=== PATIENT | female | born 1945 | race Caucasian/White ===

== ENCOUNTER 2019-08-01 15:01 | Emergency (ER) | payer MEDICARE, SELFPAY ==
--- NOTE | ~2019-08-01 | XR_ITS ---
EXAMINATION: XR chest 2V EXAM DATE: 08/01/2019 15:56 INDICATION: Two-day shortness of breath. Mid chest pain. Hypertension. TECHNIQUE: Sitting AP frontal chest x-ray, and the lateral chest x-ray was obtained. Comparison is ma heidi to prior examination from 07/31/2018. FINDINGS: The cardiomediastinal silhouette is prominent but magnified on this AP technique. Left uppe r lobe granuloma. No confluent consolidation, pneumothorax or pleural effusion suspected. Right shoul fawad replacement. IMPRESSION: No airspace disease. Reviewed, dictated and finalized at location A. ATING MACHINE OPERATOR IMPRESSION: No airspace disease.
[2019-08-01 15:11] VITALS: BP 186/97; PULSE 72; RESP 18; TEMP 36.8; O2SAT 99
--- NOTE | 2019-08-01 15:14 | ECG_ITS ---
Measurements Intervals [place] Rate: 75 P: VT: 0 QRS: -40 QRSD: 136 T: -12 QT: 396 QTc: 444 Interpretive Statements SINUS RHYTHM WITH FIRST DEDGREE AV BLOCK ATRIAL PREMATURE COMPLEX LEFT AXIS DEVIATION RIGHT BUNDLE BRANCH BLOCK VOLTAGE CRITERIA FOR LVH BASELINE ARTIFACT- I, II, AVL ABNORMAL ECG Electronically Signed On 08-02-2019 10:44:16 RETAIL DEPARTMENT MANAGER by Kiel Dunne D.O.
--- NOTE | 2019-08-01 15:24 | ED_ITS ---
I attest that this documentation has been prepared under the direction and in the presence of Fransisco Kirkpatrick DO. Asani, Arberesha, Scribe 08/01/19;15:25 HPI - Chest Pain General Chief Complaint: Chest Pain Stated Complaint: chest pain Time Seen by Provider: 08/01/19 15:19 History of Present Illness HPI narrative: Pt SOB x3-4 days today tenderness to chest no cough fever NV idiopathic ventriculat tachycardia- smoked 50 years ago no blood thinners Related Data Allergies Allergy/AdvReac Type Severity Reaction Status Date / Time sulfamethoxazole Allergy Intermediate Other Verified 10/06/18 10:24 BELEN Inhibitors Allergy Unknown Verified 10/25/18 13:13 metformin Allergy Unknown Verified 10/25/18 13:13 mirabegron Allergy Unknown Verified 03/04/19 14:27 piperacillin Allergy Unknown Verified 10/25/18 13:14 sulfamethizole Allergy Unknown Verified 10/25/18 13:14 tazobactam Allergy Unknown Verified 08/30/17 11:04 trimethoprim Allergy Unknown Verified 10/25/18 13:15 PMFSH Family History Family History (Updated 10/25/18 @ 13:22 by DOCTOR UNKNOWN) Mother Hypertension, Onset Age: 92 Patient's mother is Family history of heart disease in male family member before age 55 Family history of cardiovascular disease Family history of dementia Grandparent Carcinoma of colon, Onset Age: 80 Family history of malignant neoplasm of cervix, Onset Age: 60 Family history of malignant neoplasm Father Family history of throat cancer Patient's father is , Onset Age: 62 Family history of malignant neoplasm Other Family history of alcoholism Family history of arthritis Social History Social History Smoking status: Never smoker Smoking end date: 06/25/69 Alcohol intake: never Gender identity (if verbalized by the patient): Female Course Vital Signs Vital signs: Vital Signs Temperature 36.8 C 08/01/19 15:11 Pulse Rate 72 08/01/19 15:11 Respiratory Rate 18 08/01/19 15:11 Blood Pressure 186/97 H 08/01/19 15:11 Pulse Oximetry 99 08/01/19 15:11 Temperature 36.8 C 08/01/19 15:11 Pulse Rate 72 08/01/19 15:11 Respiratory Rate 18 08/01/19 15:11 Blood Pressure 186/97 H 02/07/20 15:11 Pulse Oximetry 99 08/01/19 15:11 Discharge Plan Discharge Prescriptions: No Action Toviaz 4 mg tablet extended release 24 hr 4 mg PO DAILY Qty: 90 RF: 0 candesartan 32 mg tablet 32 mg PO DAILY Qty: 90 RF: 0 metformin 500 mg tablet 500 mg PO DAILY Qty: 90 RF: 1
--- NOTE | 2019-08-01 15:29 | ED.SOB ---
HPI - SOB/Dyspnea General Chief Complaint: Chest Pain <Fransisco Kirkpatrick DO - Last Filed: 08/01/19 18:44> Stated Complaint: chest pain <Fransisco Kirkpatrick DO - Last Filed: 08/01/19 18:44> Time Seen by Provider: 08/01/19 15:19 <Fransisco Kirkpatrick DO - Last Filed: 08/01/19 18:44> Source: patient <Fransisco Kirkpatrick DO - Last Filed: 08/01/19 18:44> Mode of arrival: ambulatory <Fransisco Kirkpatrick DO - Last Filed: 08/01/19 18:44> Limitations: no limitations <Fransisco Kirkpatrick DO - Last Filed: 08/01/19 18:44> History of Present Illness HPI Narrative: Pt is a 74 y/o female who presents to the ED with c/o SOB x4 days. Pt reports chest tenderness, but denies cough, fever, or N/V. She has a H/o idiopathic ventricular tachycardia but has not had Sx for many years. Pt quit smoking 50 years ago and she is not on any blood thinners. Her driller's offsider is Dr. Ezequiel Kat at [facility]. <Fransisco Kirkpatrick DO - Last Filed: 08/01/19 18:44> MD elicited complaint: shortness of breath <Fransisco Kirkpatrick DO - Last Filed: 08/01/19 18:44> Onset (ago): day(s) (4) <Fransisco Kirkpatrick DO - Last Filed: 08/01/19 18:44> Known history of: other (idiopathic ventricular tachycardia) <Fransisco Kirkpatrick DO - Last Filed: 08/01/19 18:44> Associated symptoms: chest pain <Fransisco Kirkpatrick DO - Last Filed: 08/01/19 18:44> Related Data Home Medications: Home Medications Medication Instructions Recorded Confirmed amoxicillin 500 mg PO Q12H 08/01/19 aspirin 81 mg PO DAILY 08/01/19 candesartan 08/01/19 doxycycline hyclate 100 mg PO BID 08/01/19 fesoterodine [Toviaz] mg PO 08/01/19 hydrochlorothiazide 25 mg PO DAILY 08/01/19 levothyroxine [Synthroid] 125 mcg PO DAILY 08/01/19 lorazepam 0.5 mg PO DAILY PRN 08/01/19 metformin 500 mg PO DAILY 08/01/19 sotalol 120 mg PO BID 08/01/19 <Fransisco Kirkpatrick DO - Last Filed: 08/01/19 18:44> Allergies/Adverse Reactions: Allergies Allergy/AdvReac Type Severity Reaction Status Date / Time sulfamethoxazole Allergy Intermediate Other Verified 10/06/18 10:24 mirabegron Allergy Unknown Chest Pain Verified 08/01/19 15:31 piperacillin Allergy Unknown Other Verified 08/01/19 15:31 sulfamethizole Allergy Unknown Other Verified 08/01/19 15:31 tazobactam Allergy Unknown Unknown Verified 08/01/19 15:31 trimethoprim Allergy Unknown Unknown Verified 08/01/19 15:31 BELEN Inhibitors AdvReac Unknown Cough Verified 08/01/19 15:31 <Fransisco Kirkpatrick DO - Last Filed: 08/01/19 18:44> Review of Systems Review of Systems: All systems reviewed & are unremarkable except as noted in HPI and below <Fransisco Kirkpatrick DO - Last Filed: 08/01/19 18:44> Constitutional: Constitutional: Denies fever(s) <Fransisco Kirkpatrick DO - Last Filed: 08/01/19 18:44> Cardiovascular: Cardiovascular: Reports chest pain <Fransisco Kirkpatrick DO - Last Filed: 08/01/19 18:44> Respiratory: Respiratory: Denies cough and Reports dyspnea <Fransisco Kirkpatrick DO - Last Filed: 08/01/19 18:44> Gastrointestinal: Gastrointestinal: Denies nausea and Denies vomiting <Fransisco Kirkpatrick DO - Last Filed: 08/01/19 18:44> [facility] Past Medical History Medical History: Medical History (Updated 08/01/19 @ 18:30 by Fransisco Kirkpatrick DO) Anemia Anxiety Arthritis Diabetes mellitus HLD (hyperlipidemia) HTN (hypertension) Hypothyroid Idiopathic ventricular tachycardia Leg fracture, left <Fransisco Kirkpatrick DO - Last Filed: 08/01/19 18:44> Surgical History Surgical History: Surgical History (Updated 08/01/19 @ 15:35 by Eri De Paz) H/O bilateral cataract extraction H/O dilation and curettage H/O total shoulder replacement rt H/O tubal ligation History of left knee replacement <Fransisco Kirkpatrick DO - Last Filed: 08/01/19 18:44> Family History Family History: Family History (Updated 10/25/18 @ 13:22 by DOCTOR UNKNOWN) Mother Hypertens
[2019-08-01 15:41] LABS: Basophils Absolute Auto 0.1 K/mm3 (0.0-0.1); Basophils Percent Auto 0.9 % (0.2-1.2); Eosinophils Absolute Auto 0.1 K/mm3 (0-0.3); Eosinophils Percent Auto 1.6 % (0-4.4); Hematocrit 39.1 % (37.0-47.0); Hemoglobin 12.6 g/dL (12.0-15.0); Immature Granulocyte Absolute 0.03 K/mm3 (0.00-0.031); Immature Granulocyte Percent A 0.4 % (0-0.5); Lymphocytes Absolute Auto 1.91 K/mm3 (0.9-3.2); Lymphocytes Percent Auto 23.8 % (18.3-44.2); Mean Corpuscular HGB Conc 32.2 g/dl (32-36); Mean Corpuscular Hemoglobin 30.6 pg (26-34); Mean Corpuscular Volume 94.9 fl (80-100); Mean Platelet Volume 10.4 fl (7.4-10.4); Monocytes Absolute Auto 0.8 K/mm3 (0.1-0.6); Monocytes Percent Auto 10.1 % (2.6-8.5); Neutrophils Absolute Auto 5.1 K/mm3 (1.3-6.7); Neutrophils Percent Auto 63.2 % (45.5-73.1); Platelet Count Result 270 k/mm3 (150-375); Red Blood Count 4.12 M/mm3 (4.2-5.4); Red Cell Distribution Width 12.7 % (11.5-14.5)
[2019-08-01 15:47] LABS: Partial Thromboplastin Time 29.4 SECONDS (22.3-36.8); Prothrombin Time 12.5 Seconds (11.1-14.7)
[2019-08-01 15:52] LABS: Blood Urea Nitrogen 25 mg/dL (7-17); Calcium 9.1 mg/dL (8.4-10.2); Carbon Dioxide 25 mmol/L (22-30); Chloride 98 mmol/L (98-107); Estimated CRCL calculation 73 ml/min; Estimated Glomerular Filt Rate > 60; Glucose 124 mg/dL (65-105); Sodium 135 mmol/L (137-145)
[2019-08-01 16:01] LABS: NT Pro B Type Natriuretic Pept 243 PG/ML (5-100)
[2019-08-01] MEDS: ASPIRIN 81 MG CHEWABLE TABLET 324 MG PO (16:01)
[2019-08-01 16:03] LABS: Troponin I < 0.012 ng/mL (0.000-0.034)
--- NOTE | 2019-08-01 17:22 | PM.CNCAR ---
Assessment and Plan Assessment and plan (1) HLD (hyperlipidemia): Code(s): E78.5 - Hyperlipidemia, unspecified Status: Acute (2) HTN (hypertension): Code(s): I10 - Essential (primary) hypertension Status: Acute Assessment and Plan: Stable. (3) Idiopathic ventricular tachycardia: Code(s): I47.2 - Ventricular tachycardia Status: Acute Assessment and Plan: Stable on Sotalol. (4) SOB (shortness of breath): Code(s): R06.02 - Shortness of breath Status: Acute Assessment and Plan: Obtain CT chest to r/o PE. Check second troponin level. History of Present Illness History of Present Illness Consult date/time: 08/01/19 17:22 Consult regarding sob. 74 yr old woman with a history of idiopathic VT on Sotalol and being followed by her EP physician, Dr. Kat at [facility] in [facility]), hypertension, DM, obesity who presents to ED for sob for the last several days that got worse this morning. She states that moving or walking makes sob worse, but not lying down. No edema, orthopnea, palpitations. No chest pain but she has chest wall tenderness. First set of troponin is normal. EKG is essentially normal showing Sinus rhythm, PAC, RBBB. Reason For Visit: chest pain Review of Systems Constitutional: Constitutional: Reports as per HPI Cardiovascular: Cardiovascular: Reports as per HPI, Denies chest pain, Denies leg edema, Denies lightheadedness and Denies palpitations Respiratory: Respiratory: Reports as per HPI, Reports dyspnea and Reports dyspnea on exertion Gastrointestinal: Gastrointestinal: Reports as per HPI and Denies abdominal pain Musculoskeletal: Musculoskeletal: Reports as per HPI Neurologic: Reports as per HPI and Denies Abnormal speech present [facility] Past Medical History Medical History (Updated 08/01/19 @ 17:28 by Kiel Dunne DO) Anemia Anxiety Arthritis Diabetes mellitus HLD (hyperlipidemia) HTN (hypertension) Hypothyroid Idiopathic ventricular tachycardia Leg fracture, left Surgical History Surgical History (Updated 08/01/19 @ 15:35 by Eri De Paz) H/O bilateral cataract extraction H/O dilation and curettage H/O total shoulder replacement rt H/O tubal ligation History of left knee replacement Family History Family History (Updated 10/25/18 @ 13:22 by DOCTOR UNKNOWN) Mother Hypertension, Onset Age: 92 Patient's mother is Family history of heart disease in male family member before age 55 Family history of cardiovascular disease Family history of dementia Grandparent Carcinoma of colon, Onset Age: 80 Family history of malignant neoplasm of cervix, Onset Age: 60 Family history of malignant neoplasm Father Family history of throat cancer Patient's father is , Onset Age: 62 Family history of malignant neoplasm Other Family history of alcoholism Family history of arthritis Social History Social History (Updated 08/01/19 @ 15:36 by Eri De Paz) Smoking status: Former smoker Smoking end date: 06/25/69 Alcohol intake: never Gender identity (if verbalized by the patient): Female Meds Home Medications and Allergies Home Medications Medication Instructions Recorded Confirmed Type amoxicillin 500 mg PO Q12H 08/01/19 History aspirin 81 mg PO DAILY 08/01/19 History candesartan 08/01/19 History doxycycline hyclate 100 mg PO BID 08/01/19 History fesoterodine [Toviaz] mg PO 08/01/19 History hydrochlorothiazide 25 mg PO DAILY 08/01/19 History levothyroxine [Synthroid] 125 mcg PO DAILY 08/01/19 History lorazepam 0.5 mg PO DAILY PRN 08/01/19 History metformin 500 mg PO DAILY 08/01/19 History sotalol 120 mg PO BID 08/01/19 History Allergies Allergy/AdvReac Type Severity Reaction Status Date / Time sulfamethoxazole Allergy Intermediate Other Verified 10/06/18 10:24 mirabegron Allergy Unknown Chest Pain Verified 08/01/19 15:
[2019-08-01 17:30] VITALS: BP 151/82; PULSE 64; RESP 20; O2SAT 98
[2019-08-01 18:26] LABS: Troponin I < 0.012 ng/mL (0.000-0.034)
[2019-08-01 19:24] VITALS: BP 160/77; PULSE 62; RESP 16; O2SAT 100
[2019-08-01 19:36] VITALS: PULSE 70
--- NOTE | 2019-08-01 21:44 | PC.NURSE ---
Patient's second IV blew while in radiology. EDP Maksim notified.
[2019-08-01 21:54] VITALS: BP 149/77; PULSE 69; RESP 12; O2SAT 98
[2019-08-01 22:05] LABS: D Dimer 1.85 ug/mL (<0.48)
[2019-08-01 22:17] LABS: Troponin I < 0.012 ng/mL (0.000-0.034)
[2019-08-01 23:40] VITALS: BP 137/81; PULSE 73; RESP 21; TEMP 37.1; O2SAT 100
--- NOTE | 2019-08-01 23:55 | PC.NURSE ---
Patient discharged at this time. Unable to click the box to chart discharge date and time. Patient discharged on 08/01/2019 at 2355 ED charge nurse Sophie notified. Patient was wheelchaired out of ED in no distress or difficulty and with all belongings.
== END 2019-08-01 23:40 | disposition home or self-care (01) ==
PROVIDERS: Emergency Medicine; Emergency Provider Emergency Medicine; PCP Internal Medicine
DX: R07.89 Other chest pain (principal); E78.5 Hyperlipidemia, unspecified; I10 Essential (primary) hypertension; R06.02 Shortness of breath; F41.9 Anxiety disorder, unspecified; Z86.2 Personal history of diseases of the blood and blood-forming organs and certain disorders involving the immune mechanism; E11.9 Type 2 diabetes mellitus without complications; E03.9 Hypothyroidism, unspecified; Z98.42 Cataract extraction status, left eye; Z98.41 Cataract extraction status, right eye; Z96.611 Presence of right artificial shoulder joint; Z96.652 Presence of left artificial knee joint; Z87.891 Personal history of nicotine dependence; Z79.4 Long term (current) use of insulin; Z79.82 Long term (current) use of aspirin; I44.0 Atrioventricular block, first degree; I49.1 Atrial premature depolarization; R94.31 Abnormal electrocardiogram [ECG] [EKG]; I45.10 Unspecified right bundle-branch block
CPT/HCPCS: 36415; 71046; 80048; 83880; 84484; 85025; 85380; 85610; 85730; 93005; 99284; A9270

== ENCOUNTER → 2019-08-12 12:24 | Outpatient (CLI) | payer MEDICARE, SELFPAY ==
--- NOTE | ~2019-08-12 | CT_ITS ---
EXAMINATION: CTA chest PE protocol DATE: 08/12/2019 13:05 INDICATION: Shortness of breath, mid chest pain TECHNIQUE: Computed tomography angiography (CTA) of the chest was performed with 100 mL Omnipaque-350 intravenous contrast timed to evaluate the pulmonary arteries. Coronal maximum intensity projection 3D-reconstructions were created by the technologist. Automated exposure control and iterative reconst ruction technique were employed. Exam dose: 786.13 mGy-cm total exam DLP. COMPARISON: 08/01/2021 view chest 04/25/2018 CT pulmonary scan FINDINGS: There is diagnostic contrast enhancement of the pulmonary arteries and no evidence of pulmo nary embolism. Stable ascending aortic diameter approximately 4.1 cm. No evidence of thoracic aortic dissection. No hilar or mediastinal mass lesion or lymphadenopathy. No pulmonary infiltrate or consolidation. 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 Status post right glenohumeral shoulder arthroplasty. There is a large partially calcified gallstone and suggestion of multiple smaller dependent gallstone s; gallbladder ultrasound would be more definitive for evaluation of the gallbladder. IMPRESSION: No evidence of pulmonary embolism Cholelithiasis Reviewed, dictated and finalized at [facility]. Reviewed, dictated and finalized at location B. ER TAPER
== END ==
PROVIDERS: PCP Internal Medicine; Visit Provider Internal Medicine
DX: I26.99 Other pulmonary embolism without acute cor pulmonale (principal); K80.20 Calculus of gallbladder without cholecystitis without obstruction
CPT/HCPCS: 71275; Q9967

== ENCOUNTER 2019-10-31 11:04 | Outpatient (CLI) | payer MEDICARE, SELFPAY | END 2019-10-31 11:05 | disposition home or self-care (01) | PROVIDERS: PCP Internal Medicine; Visit Provider Internal Medicine | DX: R19.7 Diarrhea, unspecified (principal) | CPT/HCPCS: 87045; 87046; 87324; 87427 ==

== ENCOUNTER 2020-07-16 11:51 | Outpatient (NON) | payer MEDICARE, SELFPAY ==
[2020-07-16 22:24] LABS: SARS-CoV-2 RNA PCR Negative
== END 2020-07-16 11:52 ==
LOC: ANHCOVIDDT 11:52
PROVIDERS: Family Provider Internal Medicine; PCP Internal Medicine; Visit Provider Internal Medicine
DX: R68.89 Other general symptoms and signs (principal); Z20.822 Contact with and (suspected) exposure to COVID-19
CPT/HCPCS: C9803; U0003; U0005

== ENCOUNTER → 2020-10-02 01:11 | Outpatient (CLI) | payer MEDICARE, SELFPAY ==
[2020-10-02 18:53] LABS: SARS-CoV-2 RNA PCR Negative
== END ==
PROVIDERS: PCP Internal Medicine; Visit Provider Internal Medicine Gastroenterology
DX: Z01.812 Encounter for preprocedural laboratory examination (principal); Z20.822 Contact with and (suspected) exposure to COVID-19
CPT/HCPCS: C9803; U0003; U0005

== ENCOUNTER 2020-10-06 02:02 | Day surgery (SDC) | payer MEDICARE, SELFPAY ==
[2020-09-24 14:12] VITALS: BMI 43.1
[2020-10-06 08:35] VITALS: BP 150/81; PULSE 66; RESP 18; TEMP 36.4; O2SAT 97; BMI 45.8
[2020-10-06 08:43] LABS: Glucose Point of Care 111 (65-105)
[2020-10-06] MEDS: LACTATED RINGERS 1,000 ML 150 ML IV CONT (08:49)
--- NOTE | 2020-10-06 09:23 | WPDANESEPPF ---
Anes - Initial Pre Proc Eval Procedure: Operation Date: 10/06/20 09:30 Proposed Procedures p Screening Colonoscopy - Sukhdev Lozano MD Date/Time: 10/06/20 09:23 Surgeon: Sukhdev Lozano MD Pre Op Diagnosis: Neoplasm Screening Patient Data Age: 75 Gender: F Height: 5 ft 7 in Weight: 132.8 kg Last Vital Signs Temp 97.5 F L 10/06/20 08:35 Pulse 66 10/06/20 08:35 Resp 18 10/06/20 08:35 BP 150/81 H 10/06/20 08:35 Pulse Ox 97 10/06/20 08:35 Allergies Allergy/AdvReac Type Severity Reaction Status Date / Time sulfamethoxazole Allergy Mild Hives Verified 10/06/20 08:34 [From Bactrim] mirabegron Allergy Unknown Chest Pain Verified 10/06/20 08:34 tazobactam Allergy Unknown Unknown Verified 10/06/20 08:34 trimethoprim Allergy Unknown Unknown Verified 10/06/20 08:34 Home Medications Medication Instructions Recorded Confirmed Type aspirin 81 mg PO DAILY 08/01/19 10/06/20 History sotalol 120 mg PO BID 08/01/19 10/06/20 History melatonin 10 mg capsule 10 mg PO HS PRN 06/08/20 10/06/20 History metformin 500 mg tablet 500 mg PO DAILY #90 tablet 06/22/20 10/06/20 Rx candesartan 32 mg tablet See Rx Instructions .ROUTE 08/03/20 10/06/20 Rx .COMPLEX #90 tablet fesoterodine 4 mg tablet,extended See Rx Instructions .ROUTE 08/16/20 10/06/20 Rx release 24 hr .COMPLEX #90 tablet levothyroxine 88 mcg tablet 88 mcg PO DAILY #90 tablet 08/31/20 10/06/20 Rx duloxetine 30 mg capsule,delayed 30 mg PO DAILY #90 cap 09/01/20 10/06/20 Rx release diphenoxylate-atropine 2.5 1 tablet PO TID PRN #20 tablet 10/04/20 10/06/20 Rx mg-0.025 mg tablet lorazepam 0.5 mg tablet 0.5 mg PO DAILY PRN #30 tablet 10/04/20 10/06/20 Rx hydrochlorothiazide 25 mg tablet See Rx Instructions .ROUTE 10/05/20 10/06/20 Rx .COMPLEX #90 tablet Laboratory Tests 10/06/20 08:41 POC Capillary Glucose 111 mg/dl H mg/dl (65-105) Patient hx anesthesia problems: none Family hx anesthesia problems: none [facility] Past Medical History Medical History (Updated 09/01/20 @ 13:39 by Fernando Ann MD) Anemia Anxiety Arthritis Diabetes mellitus HLD (hyperlipidemia) HTN (hypertension) Hypothyroid Idiopathic ventricular tachycardia Leg fracture, left Surgical History Surgical History H/O bilateral cataract extraction H/O dilation and curettage H/O total shoulder replacement rt H/O tubal ligation History of left knee replacement Family History Family History Mother Hypertension, Onset Age: 92 Patient's mother is Family history of heart disease in male family member before age 55 Family history of cardiovascular disease Family history of dementia Grandparent Carcinoma of colon, Onset Age: 80 Family history of malignant neoplasm of cervix, Onset Age: 60 Family history of malignant neoplasm Father Family history of throat cancer Patient's father is , Onset Age: 62 Family history of malignant neoplasm Other Family history of alcoholism Family history of arthritis Social History Social History Smoking end date: 06/25/69 Alcohol intake: never Drinks per week: 1 Alcohol use details: wine Living arrangements: with family Gender identity (if verbalized by the patient): Female Spiritual care concerns: No Anes - Eval Final PreProcedure Day of Procedure 10/06/20 09:23 Patient weight: morbidly obese Heart: regular rate and rhythm Lungs: clear to auscultation Airway: Mallampati scale class III Neurological: alert and oriented Last oral intake: >/= 8 hours ASA classification: IV Emergent: no Anesthetic plan: proceed Anesthesia type and monitoring: general GIVS and standard monitoring Informed Consent: The patient's anesthetic plan and its attendant risks and benefits were discussed with radha
--- NOTE | 2020-10-06 09:24 | PM.HPGS ---
History of Present Illness History of Present Illness Consent: Risks, benefits, and alternatives have been discussed and questions answered. Patient agrees to proceed with procedure. Chief complaint: Neoplasm Screening Narrative: Kayleen Blair is a 75 year old female referred for colon cancer screening. This is her 1st colonoscopy. She has also had very loose stools. It was thought that metformin was the cause but stopping it did not seem to make much of a difference. Review of Systems Review of Systems: All systems reviewed & are unremarkable except as noted in HPI and below PMFSH Past Medical History Medical History Anemia Anxiety Arthritis Diabetes mellitus HLD (hyperlipidemia) HTN (hypertension) Hypothyroid Idiopathic ventricular tachycardia Leg fracture, left Surgical History Surgical History H/O bilateral cataract extraction H/O dilation and curettage H/O total shoulder replacement rt H/O tubal ligation History of left knee replacement Family History Family History Mother Hypertension, Onset Age: 92 Patient's mother is Family history of heart disease in male family member before age 55 Family history of cardiovascular disease Family history of dementia Grandparent Carcinoma of colon, Onset Age: 80 Family history of malignant neoplasm of cervix, Onset Age: 60 Family history of malignant neoplasm Father Family history of throat cancer Patient's father is , Onset Age: 62 Family history of malignant neoplasm Other Family history of alcoholism Family history of arthritis Social History Social History Smoking end date: 06/25/69 Alcohol intake: never Drinks per week: 1 Alcohol use details: wine Living arrangements: with family Gender identity (if verbalized by the patient): Female Spiritual care concerns: No Meds Home Medications and Allergies Home Medications Medication Instructions Recorded Confirmed Type aspirin 81 mg PO DAILY 08/01/19 10/06/20 History sotalol 120 mg PO BID 08/01/19 10/06/20 History melatonin 10 mg capsule 10 mg PO HS PRN 06/08/20 10/06/20 History metformin 500 mg tablet 500 mg PO DAILY #90 tablet 06/22/20 10/06/20 Rx candesartan 32 mg tablet See Rx Instructions .ROUTE 08/03/20 10/06/20 Rx .COMPLEX #90 tablet fesoterodine 4 mg tablet,extended See Rx Instructions .ROUTE 08/16/20 10/06/20 Rx release 24 hr .COMPLEX #90 tablet levothyroxine 88 mcg tablet 88 mcg PO DAILY #90 tablet 08/31/20 10/06/20 Rx duloxetine 30 mg capsule,delayed 30 mg PO DAILY #90 cap 09/01/20 10/06/20 Rx release diphenoxylate-atropine 2.5 1 tablet PO TID PRN #20 tablet 10/04/20 10/06/20 Rx mg-0.025 mg tablet lorazepam 0.5 mg tablet 0.5 mg PO DAILY PRN #30 tablet 10/04/20 10/06/20 Rx hydrochlorothiazide 25 mg tablet See Rx Instructions .ROUTE 10/05/20 10/06/20 Rx .COMPLEX #90 tablet Allergies Allergy/AdvReac Type Severity Reaction Status Date / Time sulfamethoxazole Allergy Mild Hives Verified 10/06/20 08:34 [From Bactrim] mirabegron Allergy Unknown Chest Pain Verified 10/06/20 08:34 tazobactam Allergy Unknown Unknown Verified 10/06/20 08:34 trimethoprim Allergy Unknown Unknown Verified 10/06/20 08:34 Vital Signs Vital Signs - 24 hr 10/06/20 08:35 Temperature 36.4 C L Pulse Rate 66 Respiratory Rate 18 Blood Pressure 150/81 H Pulse Oximetry 97 Exam Resp: Auscultation: clear to auscultation bilaterally Cardio: Rate: regular rate Rhythm: regular rhythm GI: GI Palp: Yes Soft to palpation and No Tenderness to palpation present (GI) Assessment and Plan Assessment and plan (1) Colon cancer screening: Code(s): Z12.11 - Encounter for screening for malignant neoplasm of colon Status: Acut
[2020-10-06 10:07] VITALS: BP 105/57; PULSE 61; RESP 20; O2SAT 100
[2020-10-06 10:17] VITALS: BP 113/68; PULSE 59; RESP 20; O2SAT 100
[2020-10-06 10:27] VITALS: BP 136/74; PULSE 58; RESP 20; O2SAT 100
== END 2020-10-06 10:47 | disposition home or self-care (01) ==
PROVIDERS: PCP Internal Medicine; Visit Provider Internal Medicine Gastroenterology
PROC: 0DJD8ZZ Inspection of Lower Intestinal Tract, Via Natural or Artificial Opening Endoscopic (ICD-10-PCS; CPT 45378; principal; 2020-10-06 09:30)
DX: Z12.11 Encounter for screening for malignant neoplasm of colon (principal); K52.831 Collagenous colitis; K52.832 Lymphocytic colitis; I10 Essential (primary) hypertension; E11.9 Type 2 diabetes mellitus without complications; E78.5 Hyperlipidemia, unspecified; E03.9 Hypothyroidism, unspecified; D64.9 Anemia, unspecified; F41.9 Anxiety disorder, unspecified; I47.2 Ventricular tachycardia; Z79.84 Long term (current) use of oral hypoglycemic drugs; Z79.82 Long term (current) use of aspirin; E66.01 Morbid (severe) obesity due to excess calories; Z68.42 Body mass index [BMI] 45.0-49.9, adult
CPT/HCPCS: 45380; 82948; 88305; C9803; J2704; J7120; U0003; U0005

== ENCOUNTER 2020-12-03 17:07 | Emergency (ER) | payer MEDICARE, SELFPAY ==
[2020-12-03] VITALS (8 sets, daily range): BP systolic 98–142; BP diastolic 72–85; PULSE 71–78; RESP 14–21; TEMP 36.8; O2SAT 97–99
--- NOTE | ~2020-12-03 | XR_ITS ---
EXAMINATION: XR chest 2V DATE: 12/03/2020 17:50 INDICATION: Chest pain, shortness of breath and weakness TECHNIQUE: frontal and lateral views of the chest were obtained. COMPARISON: Chest radiograph dated 08/01/[address] dated 08/12/2019 FINDINGS: Small calcified nodules in the left midlung zone consistent with old granulomatous disease. Unchanged mild lingular atelectasis near the left costophrenic angle. New subtle airspace opacities at the lat eral aspect of the right mid and upper lung zones and at the medial left upper lung zone. No pulmonar y edema, pleural effusion or pneumothorax. Mild to moderate thoracic spondylosis. Reverse right total shoulder arthroplasty. IMPRESSION: 1. Subtle airspace opacities in the bilateral upper lung zones and lateral right midlung zone which c ould represent atelectasis and/or pneumonia. Reviewed, dictated and finalized at location A. IMPRESSION: 1. Subtle airspace opacities in the bilateral upper lung zones and lateral righ t midlung zone which could represent atelectasis and/or pneumonia.
--- NOTE | 2020-12-03 17:09 | ECG_ITS ---
Measurements Intervals [place] Rate: 79 P: 80 GA: 213 QRS: -44 QRSD: 133 T: -24 QT: 399 QTc: 459 Interpretive Statements SINUS RHYTHM LEFT AXIS DEVIATION BORDERLINE AV CONDUCTION DELAY RIGHT BUNDLE BRANCH BLOCK VOLTAGE CRITERIA FOR LVH BORDERLINE ST-T WAVE ABNORMALITY- INFERIOR LEADS BASELINE ARTIFACT- I, II, AVR, AVL, AVF, V5-V6 ABNORMAL ECG Electronically Signed On 12-03-2020 20:31:44 CDT by Kiel Dunne D.O.
[2020-12-03 17:33] LABS: Basophils Absolute Auto 0.1 K/mm3 (0.0-0.1); Basophils Percent Auto 0.9 % (0.2-1.2); Eosinophils Absolute Auto 0.2 K/mm3 (0-0.3); Eosinophils Percent Auto 1.4 % (0-4.4); Hematocrit 39.5 % (37.0-47.0); Hemoglobin 12.8 g/dL (12.0-15.0); Immature Granulocyte Absolute 0.06 K/mm3 (0.00-0.031); Immature Granulocyte Percent A 0.5 % (0-0.5); Lymphocytes Absolute Auto 1.62 K/mm3 (0.9-3.2); Lymphocytes Percent Auto 14.6 % (18.3-44.2); Mean Corpuscular HGB Conc 32.4 g/dl (32-36); Mean Corpuscular Volume 95.6 fl (80-100); Mean Platelet Volume 9.4 fl (7.4-10.4); Monocytes Absolute Auto 0.7 K/mm3 (0.1-0.6); Monocytes Percent Auto 6.1 % (2.6-8.5); Neutrophils Absolute Auto 8.5 K/mm3 (1.3-6.7); Neutrophils Percent Auto 76.5 % (45.5-73.1); Platelet Count Result 297 k/mm3 (150-375); Red Blood Count 4.13 M/mm3 (4.2-5.4); Red Cell Distribution Width 12.8 % (11.5-14.5); White Blood Count 11.1 K/mm3 (4.5-10.0)
[2020-12-03 17:42] LABS: Anion Gap 9 mmol/L (8-16); Blood Urea Nitrogen 24 mg/dL (7-17); Calcium 9.3 mg/dL (8.4-10.2); Carbon Dioxide 24 mmol/L (22-30); Chloride 102 mmol/L (98-107); Estimated CRCL calculation 65 ml/min; Estimated Glomerular Filt Rate > 60; Glucose 208 mg/dL (65-105); Potassium 4.4 mmol/L (3.4-5.0); Sodium 135 mmol/L (137-145)
[2020-12-03 17:43] LABS: Prothrombin Time 13.7 Seconds (11.1-14.7)
[2020-12-03 17:44] LABS: Partial Thromboplastin Time 25.9 SECONDS (22.3-36.8)
[2020-12-03 17:54] LABS: Troponin I < 0.012 ng/mL (0.000-0.034)
--- NOTE | 2020-12-03 20:41 | ED.GENADULT ---
HPI - General Adult General Chief complaint: Chest Pain Stated complaint: chest pain, sob, weak Time Seen by Provider: 12/03/20 19:42 History of Present Illness HPI narrative: Patient is a 75-year-old female who presents the emergency department with chief complaint of generalized weakness and chest discomfort. Patient states has been under an immense amount of stress lately and has not had anyone to talk to about trying to get assistance with her . The patient states that she also has had a cough for some time patient denies history of cardiac disease other than having a atrial dysrhythmia that she takes sotalol for. Related Data Home Medications Medication Instructions Recorded Confirmed aspirin 81 mg PO DAILY 08/01/19 11/19/20 sotalol 120 mg PO BID 08/01/19 11/19/20 melatonin 10 mg capsule 10 mg PO HS PRN 06/08/20 11/19/20 Allergies Allergy/AdvReac Type Severity Reaction Status Date / Time sulfamethoxazole Allergy Mild Hives Verified 11/19/20 13:33 [From Bactrim] mirabegron Allergy Unknown Chest Pain Verified 11/19/20 13:33 tazobactam Allergy Unknown Unknown Verified 11/19/20 13:33 trimethoprim Allergy Unknown Unknown Verified 11/19/20 13:33 Review of Systems Review of Systems: Narrative: A 10 system review of systems was completed on the patient and is negative except for what is stated in the HPI. Nursing and ancillary documentation was reviewed. [facility] Past Medical History Medical History Anemia Anxiety Arthritis Diabetes mellitus HLD (hyperlipidemia) HTN (hypertension) Hypothyroid Idiopathic ventricular tachycardia Leg fracture, left Surgical History Surgical History H/O bilateral cataract extraction H/O dilation and curettage H/O total shoulder replacement rt H/O tubal ligation History of left knee replacement Family History Family History Mother Hypertension, Onset Age: 92 Patient's mother is Family history of heart disease in male family member before age 55 Family history of cardiovascular disease Family history of dementia Grandparent Carcinoma of colon, Onset Age: 80 Family history of malignant neoplasm of cervix, Onset Age: 60 Family history of malignant neoplasm Father Family history of throat cancer Patient's father is , Onset Age: 62 Family history of malignant neoplasm Other Family history of alcoholism Family history of arthritis Social History Social History Smoking packs per day: 0.5 Smoking cigarettes per day: 10.0 Years smoked: 6 Smoking pack-years: 3.00 Tobacco type: cigarettes Second hand tobacco smoke exposure: No Smoking end date: 06/25/69 Alcohol intake: current Drinks per week: 1 Substance use type: does not use Gender identity (if verbalized by the patient): Female Spiritual care concerns: No Exam Narrative: Exam Narrative: GENERAL: Well-appearing, well-nourished, and in no acute distress. HEAD: Normocephalic, atraumatic. EYES: PERRLA and EOMI. ENT: Nares clear, no rhinorrhea or epistaxis. Mucous membranes moist. NECK: Supple. CHEST: Clear to auscultation. No respiratory distress. HEART: Regular rate and rhythm. No murmur heard. Normal peripheral pulses. ABDOMEN: Soft, nontender, nondistended, normal active bowel sounds. EXTREMITIES: Normal range of motion. No edema. SKIN: Warm, dry, no rash. NEURO: No focal deficits. Alert and oriented x3. PSYCH: Normal mood and affect. Course Vital Signs Vital signs: Vital Signs Temperature 36.8 C 12/03/20 17:21 Pulse Rate 78 12/03/20 17:21 Respiratory Rate 20 12/03/20 17:21 Blood Pressure 142/76 H 12/03/20 17:21 Pulse Oximetry 98 12/03/20 17:21 Temperature 36.8 C 12/03/20 17
[2020-12-03 20:58] LABS: Troponin I < 0.012 ng/mL (0.000-0.034)
== END 2020-12-03 21:35 | disposition home or self-care (01) ==
LOC: ANHED 19:46
PROVIDERS: Emergency Medicine; Emergency Provider Emergency Medicine; PCP Internal Medicine
DX: J18.9 Pneumonia, unspecified organism (principal); R07.89 Other chest pain; Z79.82 Long term (current) use of aspirin; Z86.2 Personal history of diseases of the blood and blood-forming organs and certain disorders involving the immune mechanism; M19.90 Unspecified osteoarthritis, unspecified site; E78.5 Hyperlipidemia, unspecified; I10 Essential (primary) hypertension; E03.9 Hypothyroidism, unspecified; F41.9 Anxiety disorder, unspecified; Z98.42 Cataract extraction status, left eye; Z98.41 Cataract extraction status, right eye; Z96.611 Presence of right artificial shoulder joint; Z96.652 Presence of left artificial knee joint; F17.210 Nicotine dependence, cigarettes, uncomplicated
CPT/HCPCS: 36415; 71046; 80048; 84484; 85025; 85610; 85730; 93005; 99284

== ENCOUNTER 2021-01-05 07:57 | Outpatient (CLI) | payer MEDICARE, SELFPAY ==
--- NOTE | 2021-01-05 09:17 | ECHO_ITS ---
Patient Info Name: Kayleen Blair Age: 75 years : 1945 Gender: Female Ht: 67 in Wt: 280 lbs BSA: 2.52 m2 HR: 67 bpm BP: 131 / 85 mmHg Technical Quality: Good Exam Date: 01/05/2021 9:33 AM Exam Location: [facility] Patient Status: Outpatient Admit Date: 01/05/2021 Staff Ordering Physician: Fernnado Ann MD Gm Mobile: Albin Bee, COURTNEY, RT Attending Provider: Fernando Ann MD Exam Type: CA echo doppler color flow Study Info Indications R06.00 - Dyspnea, unspecified Complete two-dimensional, color flow and Doppler transthoracic echocardiogram is performed. Strain analysis performed. Summary 1. Complete two-dimensional, color flow and Doppler transthoracic echocardiogram is performed. 2. Left ventricular chamber dimension is normal. 3. Left ventricular systolic function is normal, estimated at 60-65%. 4. There is moderately increased left ventricular wall thickness. 5. The left ventricular diastolic function is grade I diastolic dysfunction. 6. E/e' 5 is not elevated. 7. Global longitudinal strain is abnormal at -15.6%. 8. Left atrial chamber dimension is mildly enlarged. 9. There is mild aortic valve sclerosis. 10. There is mild aortic valve regurgitation. 11. There is mild mitral valve regurgitation. Left Ventricle E/e' 5 is not elevated. Global longitudinal strain is abnormal at -15.6%. Left ventricular chamber dimension is normal. Left ventricular systolic function is normal, estimated at 60-65%. There is moderately increased left ventricular wall thickness. The left ventricular diastolic function is grade I diastolic dysfunction. Right Ventricle Right ventricular systolic function is normal and with normal TAPSE 2.5 cm. Right ventricular chamber dimension is normal. Left Atria Left atrial chamber dimension is mildly enlarged. Right Atria Right atrial chamber dimension is normal. Aortic Valve The aortic valve is trileaflet. There is mild aortic valve sclerosis. There is no aortic valve stenosis. There is mild aortic valve regurgitation. Pulmonic Valve There is no pulmonic regurgitation. Mitral Valve There is no mitral valve stenosis. There is mild mitral valve regurgitation. Tricuspid Valve There is no tricuspid valve regurgitation. Pericardium/Pleural There is no pericardial effusion. Inferior Vena Cava Normal inferior vena cava with >50% collapse upon inspiration consistent with normal right atrial pressure, 5 mmHg. Aorta The aortic root size at the sinus of Valsalva is normal. Left Ventricular Outflow Tract Name Value Normal LVOT 2D LVOT Diameter 2.1 cm LVOT Doppler LVOT Peak Gradient 4 mmHg LVOT Mean Gradient 2 mmHg LVOT VTI 18 cm LVOT VTI/AV VTI Ratio 0.6 LVOT Stroke Volume 64 ml LVOT CO 4.1 l/min LVOT CI 1.6 l/min/m2 Mitral Valve Name
--- NOTE | 2021-01-05 19:05 | WPDSIXMINUTE ---
Six Minute Walk Procedure Procedure Performed Pulmonary Stress Test (6 min walk) Six Minute Walk Six Minute Walk: DOS: 01/05/2021 REQUESTING: Dr. Ann REASON FOR TESTING: dyspnea on exertion SIX MINUTE WALK This test was conducted per ATS protocol. Initial saturation is 94% on room air and pulse is 73. The patient walked for 6 minutes with a cane without stopping. There was no desaturation. The pulse ranged from 68 to 98. Distance walked was 600 ft/ 182.8 m. IMPRESSION: No supplemental oxygen is indicated with exertion.
--- NOTE | 2021-01-10 09:47 | WPDPFTINT ---
PFT Procedure Performed PFT Procedure Performed Spirometry with Pre/Post Bronchodilator Plethysmography (Lung Vol) Diffusing Cap (DLCO) PFT Interpretation DOS: 01/05/2021 REQUESTING: Dr Ann REASON FOR TESTING: Dyspnea on exertion PULMONARY FUNCTION TESTS Results are reliable and reproducible. Spirometry: FEV1 is 91%, 2.05 L, normal. FVC is 95%. the ratio is 73% normal. There is no change after bronchodilator administration. Lung volumes: Total lung capacity 91%, normal. Vital capacity 95%. ERV is extremely low 7% predicted. this is consistent with elevated BMI 43.8. RV/TLC is within the normal range. Airway resistance is 103%, normal. Diffusion: DLCO 86% normal. Flow volume loop: Only one loop was normal. IMPRESSION: Normal spirometry, normal lung volumes and normal diffusion. No correlate for the patient's symptoms. Christianne Patel MD
== END 2021-01-05 07:58 | disposition home or self-care (01) ==
LOC: ANHPFT 07:58
PROVIDERS: PCP Internal Medicine; Visit Provider Internal Medicine
DX: R06.09 Other forms of dyspnea (principal); R06.02 Shortness of breath; I34.0 Nonrheumatic mitral (valve) insufficiency; I35.1 Nonrheumatic aortic (valve) insufficiency
CPT/HCPCS: 93306; 94060; 94618; 94726; 94729

== ENCOUNTER 2021-04-25 08:37 | Outpatient (RCR) | payer MEDICARE, SELFPAY ==
[2021-04-18 12:45] VITALS: BMI 45.5
== END 2021-07-11 08:46 | disposition home or self-care (01) ==
LOC: ANHWOC 08:37
PROVIDERS: PCP Internal Medicine; Visit Provider Internal Medicine
DX: L03.116 Cellulitis of left lower limb (principal); I87.2 Venous insufficiency (chronic) (peripheral)
CPT/HCPCS: 29581; 99213; G0463

== ENCOUNTER 2021-05-13 10:12 | Outpatient (CLI) | payer MEDICARE, SELFPAY ==
--- NOTE | ~2021-05-13 | US_ITS ---
EXAMINATION: US venous doppler [facility] DATE: 05/13/2021 10:46 INDICATION: Lower limb localized edema. TECHNIQUE: Grayscale ultrasound images without and with compression and Doppler ultrasound images of the bilateral lower extremity veins were obtained. COMPARISON: Ultrasound 10/15/2018 FINDINGS: The visualized portions of right common femoral vein, profunda (deep) femoral vein, femoral vein, pop liteal vein, peroneal veins, posterior tibial veins, and greater saphenous vein outflow are patent. The visualized portions of left common femoral vein, profunda femoral vein, femoral vein, popliteal v ein, peroneal veins, posterior tibial veins, and greater saphenous vein outflow are patent. IMPRESSION: 1. No deep venous thrombosis. Reviewed, dictated and finalized at location A. ING OFF WINDER
== END 2021-05-13 10:13 | disposition home or self-care (01) ==
PROVIDERS: PCP Internal Medicine; Visit Provider Internal Medicine Cardiovascular Disease
DX: R60.0 Localized edema (principal)
CPT/HCPCS: 93970

== ENCOUNTER 2021-11-23 15:04 | Outpatient (CLI) | payer MEDICARE, SELFPAY ==
--- NOTE | ~2021-11-23 | MM_ITS ---
EXAMINATION: MM screening thais BI w angeli HISTORY: Screening mammogram TECHNIQUE: Craniocaudal and mediolateral oblique 3-D tomosynthesis images were obtained and synthetic 2-D images were generated. CAD analysis was submitted and interpreted. COMPARISON: 01/01/2019 bilateral screening mammogram 08/29/2013 diagnostic right mammogram and right breast ultrasound 08/21/2013 bilateral screening mammogram BREAST PARENCHYMAL COMPOSITION: The breasts are almost entirely fatty. FINDINGS: There is no evidence of suspicious mass, calcification, or architectural distortion to sugg est malignancy in either breast. There has been no suspicious interval change. IMPRESSION: 1. No mammographic evidence of malignancy. 2. Recommend routine screening mammography in one year. BI-RADS Category 1: Negative Reviewed, dictated and finalized at location A.
== END 2021-11-23 15:05 | disposition home or self-care (01) ==
PROVIDERS: PCP Internal Medicine; Visit Provider Internal Medicine
DX: Z12.31 Encounter for screening mammogram for malignant neoplasm of breast (principal)
CPT/HCPCS: 77063; 77067

== ENCOUNTER 2022-05-30 14:57 | Emergency (ER) | payer MEDICARE, SELFPAY ==
--- NOTE | ~2022-05-30 | XR_ITS ---
XR lumbar spine 2-3V DATE: 05/30/2022 17:59 INDICATION: Low back pain TECHNIQUE: AP, lateral, coned lateral lumbosacral views COMPARISON: None FINDINGS: There is osteopenia. There is prominent thoracolumbar levoscoliosis. There is severe degenerative disc disease throughout the lumbar spine. No fracture or bone destruction is evident. Included lower thoracic and lumbar pedi cles appear essentially intact. The sacroiliac joints appear essentially unremarkable. Left common iliac artery stent. IMPRESSION: Thoracolumbar levoscoliosis and severe degenerative disc disease of the lumbar spine Reviewed, dictated and finalized at location B. [employer]ER
[2022-05-30 15:07] VITALS: BP 154/89; PULSE 80; RESP 18; TEMP 36.9; O2SAT 98
[2022-05-30 17:11] VITALS: BP 174/88; PULSE 72; RESP 18; TEMP 36.7; O2SAT 95
--- NOTE | 2022-05-30 17:30 | ED.BACK ---
HPI - Back Pain/Injury General Chief Complaint: Back Pain/Injury Stated Complaint: back pain Time Seen by Provider: 05/30/22 17:06 Source: patient Mode of arrival: ambulatory Limitations: no limitations History of Present Illness HPI Narrative: 77-year-old female presents today with complaints of low back pain that started the day before Thanksgi. Patient denies any trauma, heavy lifting, or causative factors. Patient has been in contact with her primary and has been prescribed Lyrica and then yesterday prednisone without relief. Patient has not been in to see her primary just was in contact over the phone. Patient states pain is increased today and made it hard for her to walk due to the pain. She was suggested to come to the ER. Patient denies any saddle paresthesia, urinary incontinence, bowel incontinence, leg weakness. Patient does endorse pain radiating down the back of the left leg intermittently but currently only has low back pain. Related Data Home Medications Medication Instructions Recorded Confirmed aspirin 81 mg chewable tablet 81 mg PO DAILY 08/01/19 03/24/22 melatonin 10 mg capsule 10 mg PO HS PRN Insomnia 06/08/20 03/24/22 Allergies Allergy/AdvReac Type Severity Reaction Status Date / Time sulfamethoxazole Allergy Mild Hives Verified 05/30/22 17:07 [From Bactrim] mirabegron Allergy Unknown Chest Pain Verified 05/30/22 17:07 tazobactam Allergy Unknown Unknown Verified 05/30/22 17:07 trimethoprim Allergy Unknown Unknown Verified 03/24/22 09:25 Review of Systems Review of Systems: CONSTITUTIONAL: Denies fever, chills, or sweats. EYES: Denies visual changes, redness, or discharge. ENT: Denies rhinorrhea, congestion, sore throat, or otalgia. CARDIOVASCULAR: Denies chest pain, palpitations, or edema. RESPIRATORY: Denies cough or dyspnea. GASTROINTESTINAL: Denies abdominal pain, nausea, vomiting, or diarrhea. GENITOURINARY: Denies dysuria or hematuria. SKIN: Denies rash or itching. MUSCULOSKELETAL: Back pain. Denies joint pain, or myalgia. NEUROLOGIC: Denies headache, numbness, dizziness, or weakness. [facility], [facility] Past Medical History Medical History Anemia Anxiety Anxiety Arthritis COVID-19 vaccine series completed Diabetes mellitus HLD (hyperlipidemia) HTN (hypertension) Hypothyroid Idiopathic ventricular tachycardia Leg fracture, left Surgical History Surgical History H/O bilateral cataract extraction H/O dilation and curettage H/O total shoulder replacement rt H/O tubal ligation History of left knee replacement Family History Family History Mother Hypertension, Onset Age: 92 Patient's mother is Family history of heart disease in male family member before age 55 Family history of cardiovascular disease Family history of dementia Grandparent Carcinoma of colon, Onset Age: 80 Family history of malignant neoplasm of cervix, Onset Age: 60 Family history of malignant neoplasm Father Family history of throat cancer Patient's father is , Onset Age: 62 Family history of malignant neoplasm Other Family history of alcoholism Family history of arthritis Social History Social History Smoking packs per day: 1 Smoking cigarettes per day: 20.0 Years smoked: 6 Smoking pack-years: 6.00 Smoking status: Never smoker Tobacco type: cigarettes Second hand tobacco smoke exposure: No Smoking end date: 06/25/69 Alcohol intake: current Drinks per week: 1 Alcohol use details: wine Substance use: never Substance use type: does not use Gender identity (if verbalized by the patient): Female Spiritual care concerns: No Exam Narrative: GENERAL: Well-appearing, well-nourished, and in no acute distress. HEAD: Normocephal
[2022-05-30] MEDS: HYDROcodone/acetaminophen (*CRX) 5-325 MG TABLET 1 TAB PO (17:57)
[2022-05-30] MEDS: LIDOCAINE 5% PATCH 2 PATCH TRANSDERM (18:15)
== END 2022-05-30 20:13 | disposition home or self-care (01) ==
PROVIDERS: Emergency Provider Nurse Practitioner Family; PCP Internal Medicine
DX: M54.16 Radiculopathy, lumbar region (principal); M51.36 Other intervertebral disc degeneration, lumbar region; D64.9 Anemia, unspecified; F41.9 Anxiety disorder, unspecified; M19.90 Unspecified osteoarthritis, unspecified site; E11.9 Type 2 diabetes mellitus without complications; I10 Essential (primary) hypertension; E03.9 Hypothyroidism, unspecified
CPT/HCPCS: 72100; 99283; A9270

== ENCOUNTER 2022-07-10 09:08 | Outpatient (CLI) | payer MEDICARE, SELFPAY ==
--- NOTE | ~2022-07-10 | CT_ITS ---
Noncontrast CT scan of the lumbar spine CLINICAL HISTORY: Back pain TECHNIQUE: Axial noncontrast imaging of the lumbar spine was performed. Sagittal and coronal reformat matt images were constructed. Dose reduction technique was used on this scan by utilizing automated ex posure control and iterative reconstruction technique. FINDINGS: There are bilateral sacral fractures present, predominantly oriented in the AP dimension, w ith additional probable transverse fracture through the midportion of the sacrum. No fracture or subl uxation evident in the lumbar spine itself. There is fusion across the L4-L5 disc space. There is sev ere degenerative disc narrowing at L3-L4 and L5-S1 disc spaces. There is moderate degenerative change at the L2-L3 disc space. At L1-L2, there is no definite disc bulge or herniation. No spinal canal stenosis or definite neural foraminal narrowing. At L2-L3, there is minimal facet arthropathy. No definite disc bulge or herniation. No spinal canal s tenosis or definite neural foraminal narrowing. At L3-L4, there is no definite disc bulge or herniation. There is facet arthropathy. No spinal canal stenosis. There is probable moderate left neural foraminal narrowing. No right neural foraminal narro wing evident. At L4-L5, there is no disc bulge or herniation. There is mild to moderate bilateral neural foraminal narrowing. There is facet arthropathy without definite canal stenosis. At L5-S1, there is no definite disc bulge or herniation. There is facet arthropathy. No definite bernardino l stenosis. There is probable mild to moderate bilateral neural foraminal narrowing. IMPRESSION: Extensive H-shaped fracture of the sacrum, presumably insufficiency fractures. Mild degenerative spondylosis of the lumbar spine, as detailed above. Mild degenerative spondylosis of the lumbar spine, as detailed above. Fusion across the L4-L5 disc space. Reviewed, dictated and finalized at location . S BUSHELER
[2022-07-10 09:52] LABS: Estimated Glomerular Filt Rate > 60
== END 2022-07-10 09:09 | disposition home or self-care (01) ==
PROVIDERS: Visit Provider Nurse Practitioner
DX: M54.50 Low back pain, unspecified (principal); S32.19XA Other fracture of sacrum, initial encounter for closed fracture; M43.06 Spondylolysis, lumbar region; Z98.1 Arthrodesis status
CPT/HCPCS: 72132; Q9967

== ENCOUNTER 2022-12-27 15:30 | Outpatient (RCR) | payer MEDICARE, SELFPAY ==
--- NOTE | 2022-12-19 12:44 | PCPTNOTE ---
Patient called & cancelled scheduled appointment this date due to no transportation.
--- NOTE | 2022-12-27 16:13 | PTOPDC ---
Assessment and note entered by Gillian Rabago, PT Evaluation Information Assessment Status Discharge Diagnosis fracture sacrum, unsteady on feet Onset May 17, 2022 Subjective Information Eliza reports: feels stronger, able to get out herself and drive to dentist appt; went out to eat with her daughter and took the cane, had fear of falling and had to hold onto her; doing OK on the stairs at home; is doing everything at home, except daughter is getting her groceries--states she does not feel like she could carry the groceries into the house safely; has not made it to [facility] yet, but feels like she could walk from the parking spot into the [facility]; agrees to discharge from PT. discuss: use the walker when going out in community until get stronger, more endurance and more steady with the cane; begin to assist with carrying in groceries when her daughter is there and brings them to her home; Reported Pain Level Pain Score 0: Self Report Assessment PT Clinical Summary Eliza has received 23 PT sessions. Compared to the last reevaluation she has improved with: 2 minute walking test distance with cane 80' to 120' and with wheeled walker 140' to 170'; maximum walking distance with the cane is 150' due to leg fatigue; Tinetti balance/gait score improved by 1 point; increase hip strength with standing hip abduction and 1 UE support. 5 reps sit/stand time is 12 seconds slower. She reports doing more outings into the community and driving, but still requires assist with grocery shopping and carrying in groceries from her daughter; and she has not yet gone to [facility]. Education completed for gait safety and HEP. The goals were partially met, Discharge PT services and she is to continue with home exercises. Plan of Care PT Services Indicated No
== END 2022-12-28 14:42 | disposition home or self-care (01) ==
LOC: ANHPT 15:30
PROVIDERS: PCP Family Medicine; Visit Provider Nurse Practitioner
DX: S32.10XD Unspecified fracture of sacrum, subsequent encounter for fracture with routine healing (principal); R53.81 Other malaise; R53.83 Other fatigue; R26.81 Unsteadiness on feet
CPT/HCPCS: 97110; 97116; 97530

== ENCOUNTER 2023-01-15 16:02 | Outpatient (CLI) | payer MEDICARE, SELFPAY ==
--- NOTE | ~2023-01-15 | XR_ITS ---
Right Knee Technique: AP, lateral, and oblique views were obtained. Clinical History: Pain Findings: No fracture or dislocation is seen. There is severe degenerative change of the patellofemor al compartment. There is moderate to severe degenerative change of the medial and lateral compartment . There is extensive osteophyte formation.. Soft tissues are unremarkable. No joint effusion is seen. Impression: Severe degenerative change of the patellofemoral compartment. Moderate to severe degenerative change of the medial and lateral compartments. Reviewed, dictated and finalized at location M. Impression: Severe degenerative change of the patellofemoral compartment. Moderate to severe degenerative change of the medial and lateral compartments.
== END 2023-01-15 16:03 | disposition home or self-care (01) ==
LOC: ANHIMG 16:05
PROVIDERS: PCP Nurse Practitioner; Visit Provider Nurse Practitioner
DX: M17.11 Unilateral primary osteoarthritis, right knee (principal)
CPT/HCPCS: 73562

== ENCOUNTER 2023-04-02 09:46 | Outpatient (CLI) | payer MEDICARE, SELFPAY ==
--- NOTE | ~2023-04-02 | DEXA_ITS ---
Bone Density Report Name: KATHY GARCIA Age: 78 Sex: Female Ethnicity: White Date of : 1945 Indication: postmenopausal; screening for osteoporosis; height loss; prior fracture; Referring Provider: ADORE SINGH Study: Bone densitometry was performed. Exam Date: April 02, 2023 Accession number: [id number] Bone Density: Region BMD T-score Z-score Classification AP Spine(L1-L4) 1.184 1.2 3.9 Normal Femoral Neck (Left) 0.531 -2.9 -0.6 Osteoporosis Total Hip (Left) 0.927 -0.1 1.9 Normal Femoral Neck (Right) 0.674 -1.6 0.7 Osteopenia Total Hip (Right) 0.897 -0.4 1.6 Normal Total Hip Mean 0.912 -0.3 1.8 Normal World Health Organization criteria for BMD impression classify patients as: Normal (T-score at or above -1.0), Osteopenia (T-score between -1.0 and -2.5), or Osteoporosis (T-score at or below -2.5). 10-year Fracture Risk: FRAX not reported because: Some T-score for Spine Total or Hip Total or Femoral Neck at or below -2.5 Prior hip or vertebral fracture Previous Exams: Region Exam Age BMD T-score BMD Change BMD Change Date g/cm2 vs Baseline vs Previous Total Hip(Left) 04/02/2023 78 0.927 -0.1 -0.164 (-15.0% -0.164 (-15.0% 01/01/2019 73 1.091 1.2 Total Hip(Right) 04/02/2023 78 0.897 -0.4 -0.089 (-9.0%) -0.089 (-9.0%) 01/01/2019 73 0.986 0.4 *Denotes significance at 95% confidence level, LSC for Total Hip = 0.027 g/cm2 # Denotes dissimilar scan types or analysis methods Clinical Information Provided by Patient: Have had a previous hip or vertebral fracture Has had a low trauma fracture Has used the following medications: Vitamin D, Calcium Patient maximum height was 68.5 Menopause Age: 51 No regular weight bearing exercise Onset of menses at age 9 Number of children 3 Impression: The patient has established osteoporosis, based on the Left Femoral Neck T-score and the existence of a prior fracture. The patient has risk factors, including: previous fracture. The BMD for the Total Hip(Left) decreased, changing by -15.0% since the last DXA exam. Discussion: HIGH RISK OF FRACTURE. BONE DENSITY IS UNDESIRABLY LOW AT ONE OR MORE SKELETAL SITES, CONSISTENT WITH POSTMENOPAUSAL OSTEOPOROSIS. This patient's lowest T-score, in a patient who has previously fractured, meets the World Health Organization's (WHO) criteria for severe osteoporosis. In untreated patients, the risk of osteoporotic fracture increases approximately two-fold for each 1.0 SD decrea
== END 2023-04-02 09:47 | disposition home or self-care (01) ==
LOC: ANHIMG 09:47
PROVIDERS: PCP Nurse Practitioner; Visit Provider Nurse Practitioner Family
DX: M81.0 Age-related osteoporosis without current pathological fracture (principal); M85.851 Other specified disorders of bone density and structure, right thigh
CPT/HCPCS: 77080

== ENCOUNTER 2023-05-05 11:20 | Emergency (ER) | payer MEDICARE, SELFPAY ==
--- NOTE | ~2023-05-05 | XR_ITS ---
EXAMINATION: [id number]_[id number] DATE: 05/05/2023 12:34 INDICATION: Left knee pain. TECHNIQUE: 2 views of left knee were obtained. COMPARISON: None. FINDINGS: There is a total left knee arthroplasty in near-anatomic alignment with patellar resurfacin g. There is a periprosthetic fracture of the inferior pole of patella with 8 mm distraction. There is a small knee joint effusion. IMPRESSION: 1. Periprosthetic fracture of inferior pole of patella. 2. Small knee joint effusion. Reviewed, dictated and finalized at location A. ER'S EDUCATION INSTRUCTOR
[2023-05-05 11:43] VITALS: BP 131/71; PULSE 59; RESP 16; TEMP 36.6; O2SAT 97
--- NOTE | 2023-05-05 12:15 | ED.GENADULT ---
HPI - General Adult General Chief complaint: Extremity Injury, Lower Stated complaint: Knee pain Time Seen by Provider: 05/05/23 12:15 Source: patient, family, RN notes reviewed and old records reviewed Mode of arrival: ambulatory Limitations: no limitations History of Present Illness HPI narrative: 78-year-old female accompanied by daughter who [facility] with acute pain to her left knee for the past 2 weeks with increased symptoms for the past 3-4 days. Patient has had a prior knee replacement to that knee 10 years ago and she is scheduled to see an orthopedic surgeon at [facility] for her right knee after Thanksgiving. Patient reports that pain to her left knee has been so bad the past few days she can hardly get up to restroom. Patient has walker, wheelchair, commode at home. MD complaint: knee pain left Onset (ago): week(s) (2 with increased symptoms past 3-4 days) Location: left and lower extremity (knee) Severity scale (1-10): 8 Quality: aching and sharp Treatments prior to arrival: other (Ibuprofen) Related Data Home Medications Medication Instructions Recorded Confirmed aspirin 81 mg chewable tablet 81 mg PO DAILY 08/01/19 04/06/23 budesonide 3 mg 3 mg PO DAILY 01/11/23 04/06/23 capsule,delayed,extended release calcium carbonate 600 mg calcium 600 mg PO DAILY 01/11/23 04/06/23 (1,500 mg) tablet (Calcium) naproxen sodium 220 mg capsule 220 mg PO BID PRN 01/11/23 04/06/23 (Aleve) Allergies Allergy/AdvReac Type Severity Reaction Status Date / Time sulfamethoxazole Allergy Mild Hives Verified 04/06/23 10:23 [From Bactrim] mirabegron Allergy Unknown Chest Pain Verified 04/06/23 10:23 tazobactam Allergy Unknown Unknown Verified 04/06/23 10:23 trimethoprim Allergy Unknown Unknown Verified 04/06/23 10:23 Review of Systems Review of Systems: CONSTITUTIONAL: Denies fever, chills, or sweats. EYES: Denies visual changes, redness, or discharge. ENT: Denies rhinorrhea, congestion, sore throat, or otalgia. CARDIOVASCULAR: Denies chest pain, palpitations, or edema. RESPIRATORY: Denies cough or dyspnea. GASTROINTESTINAL: Denies abdominal pain, nausea, vomiting, or diarrhea. GENITOURINARY: Denies dysuria or hematuria. SKIN: Denies rash or itching. MUSCULOSKELETAL: Denies back pain, positive for increased pain to left knee for past 2 weeks with exacerbation of pain last 3-4 days no injury,previous knee replacement 10 years ago. or myalgia. NEUROLOGIC: Denies headache, numbness, or weakness. PSYCHIATRIC: Denies anxiety or depression. All systems reviewed & are unremarkable except as noted in HPI and below PMFSH Past Medical History Medical History Anemia Anxiety Anxiety Arthritis COVID-19 vaccine series completed Diabetes mellitus HLD (hyperlipidemia) HTN (hypertension) Hypothyroid Idiopathic ventricular tachycardia Leg fracture, left Surgical History Surgical History H/O bilateral cataract extraction H/O dilation and curettage H/O total shoulder replacement rt H/O tubal ligation History of left knee replacement Family History Family History Mother Hypertension, Onset Age: 92 Patient's mother is Family history of heart disease in male family member before age 55 Family history of cardiovascular disease Family history of dementia Grandparent Carcinoma of colon, Onset Age: 80 Family history of malignant neoplasm of cervix, Onset Age: 60 Family history of malignant neoplasm Father Family history of throat cancer Patient's father is , Onset Age: 62 Family history of malignant neoplasm Other Family history of alcoholism Family history of arthritis Social History Social History Smoking packs per day: 0.5 Smoking
== END 2023-05-05 13:17 | disposition home or self-care (01) ==
PROVIDERS: Emergency Provider Registered Nurse; PCP Nurse Practitioner
DX: M25.462 Effusion, left knee (principal); M97.8XXA Periprosthetic fracture around other internal prosthetic joint, initial encounter; E78.5 Hyperlipidemia, unspecified; I10 Essential (primary) hypertension; E03.9 Hypothyroidism, unspecified; Z87.891 Personal history of nicotine dependence
CPT/HCPCS: 73560; 99214; G0463; L1830

== ENCOUNTER 2023-09-03 13:13 | Outpatient (CLI) | payer MEDICARE, SELFPAY | END 2023-09-03 13:14 | disposition home or self-care (01) | LOC: ANHAUDIO 13:14 | PROVIDERS: PCP Nurse Practitioner; Visit Provider Nurse Practitioner | DX: H90.3 Sensorineural hearing loss, bilateral (principal) | CPT/HCPCS: 92557; 92567 ==

== ENCOUNTER 2024-11-18 08:03 | Outpatient (CLI) | payer MEDICARE, SELFPAY ==
--- NOTE | ~2024-11-18 | NM_ITS ---
EXAMINATION: NM guillermo stress w perfusion DATE: 11/18/2024 11:43 INDICATION: Chest pain TECHNIQUE: Rest images were obtained following intravenous administration of 9.5 mCi Tc99m tetrofosmi n (Myoview). The patient was infused intravenously with Lexiscan (Regadenoson). Then, 29.4 mCi Tc99m tetrofosmin (Myoview) was administered intravenously, and stress images were obtained. Data was recon structed into short axis and horizontal and vertical long axis SPECT images. Gated SPECT images were also obtained. COMPARISON: None. FINDINGS: There is a mild nonreversible perfusion defect involving the mid anterior, mid and basilar anterolateral, mid and basilar inferolateral and mid and basilar inferior albarado consistent with infar cts predominantly involving the circumflex coronary artery vascular distribution. There is mild super imposed ischemia along the lateral side of the apical inferior to the basilar inferior segments at th e junction of the circumflex and right coronary artery vascular distributions. There is some clearly discernible breast attenuation artifact affecting the anterior and anterolateral wall of the heart on the rotating source images. Prone imaging was not obtained and to what degree the region of decrease d perfusion in this area area may be artifactual remains indeterminate. There is normal left ventricu lar chamber size, wall motion and ejection fraction. Left ventricular ejection fraction measures 51% . IMPRESSION: 1. Large region of nonreversible decreased activity consistent with infarct at the mid anterior, mid and basilar anterolateral, mid and basilar inferolateral and mid and basilar inferior albarado consisten t with infarct although there is breast attenuation artifact in this region on the rotating source im ages and the perfusion defects appear to largely normalizes on the gated stress images during systole suggesting a significant portion of the suspected infarct on the anterior and anterolateral albarado is likely artifactual. 2. Small region of mild reversible ischemia in the region of the junction of the circumflex and right coronary artery vascular distributions 2. Left ventricular ejection fraction measuring 51%. Reviewed, dictated and finalized at location A. IMPRESSION: 1. Large region of nonreversible decreased activity consistent with infarct at the mid anterior, mid and basilar anterolateral, mid and basilar inferolateral and mid and basilar inferior albarado consistent with infarct although there is br east attenuation artifact in this region on the rotating source images and the perfusion defects appear to largely normalizes on the gated stress images durin g systole suggesting a significant portion of the suspected infarct on the ante rior and anterolateral albarado is likely artifactual. 2. Small region of mild reversible ischemia in the region of the junction of th e circumflex and right coronary artery vascular distributions 2. Left ventricular ejection fraction measuring 51%.
--- NOTE | 2024-11-18 08:12 | ECHO_ITS ---
Patient Info Name: Kayleen Blair Age: 79 years : 1945 Gender: Female Ht: 67 in Wt: 235 lbs BSA: 2.29 m2 HR: 68 bpm BP: 164 / 99 mmHg Technical Quality: Good Exam Date: 11/18/2024 8:34 AM Patient Status: O Admit Date: 11/18/2024 Exam Type: CA echo doppler color flow Complete two-dimensional, color flow and Doppler transthoracic echocardiogram is performed. Staff Referring Physician: Kiel Dunne DO Shear Helper: Monique Sloan Attending Provider: Kiel Dunne DO Summary 1. Complete two-dimensional, color flow and Doppler transthoracic echocardiogram is performed. 2. Left ventricular chamber dimension is normal. 3. Left ventricular systolic function is normal, estimated at 60-65. 4. There is mild concentric increased left ventricular wall thickness. 5. The left ventricular diastolic function is grade I diastolic dysfunction. 6. E/e' 6 is not elevated. 7. Left atrial chamber dimension is mildly enlarged. 8. There is mild aortic valve sclerosis. 9. There is mild aortic valve regurgitation. 10. There is mild mitral valve regurgitation. 11. No pulmonary hypertension, estimated pulmonary arterial systolic pressure is 20 mmHg. Left Ventricle E/e' 6 is not elevated. Left ventricular chamber dimension is normal. Left ventricular systolic function is normal, estimated at 60-65. There is mild concentric increased left ventricular wall thickness. The left ventricular diastolic function is grade I diastolic dysfunction. Right Ventricle Right ventricular chamber dimension is normal. Right ventricular systolic function is normal. Left Atria Left atrial chamber dimension is mildly enlarged. Right Atria Right atrial chamber dimension is normal. Aortic Valve The aortic valve is trileaflet. There is mild aortic valve sclerosis. There is no aortic valve stenosis. There is mild aortic valve regurgitation. Pulmonic Valve There is no pulmonic regurgitation. Mitral Valve There is no mitral valve stenosis. There is mild mitral valve regurgitation. Tricuspid Valve There is no tricuspid valve regurgitation. No pulmonary hypertension, estimated pulmonary arterial systolic pressure is 20 mmHg. Pericardium/Pleural There is no pericardial effusion. Inferior Vena Cava Normal inferior vena cava with >50% collapse upon inspiration consistent with normal right atrial pressure, 5 mmHg. Aorta The aortic root size at the sinus of Valsalva is normal. Left Ventricular Outflow Tract Name Value Normal LVOT 2D LVOT Diameter 2.0 cm LVOT Doppler LVOT Peak Velocity 81 cm/s LVOT Peak Gradient 3 mmHg LVOT Mean Gradient 2 mmHg LVOT VTI 17 cm LVOT VTI/AV VTI Ratio 0.6 LVOT Stroke Volume 54 ml LVOT CO 11.6 l/min LVOT CI 5.1 l/min/m2 Pulmonic Valve Name Value Normal PV Doppler PV Peak Velocity 102 cm/s PV Peak Gradient 4 mmHg Mitral Valve Name Value Normal MV Diastolic Function MV E Peak Velocity 44 cm/s MV A Peak Velocity 100 cm/s MV E/A 0.4 MV Decel Time (PW) 203 ms MV Annular TDI MV E/e' (Septal) 7.5 MV E/e' (Lateral) 5.9 MV E/e' (Average) 6.7 Tricuspid Valve Name Value Normal TV Regurgitation Doppler TR Peak Velocity 192 cm/s TR Peak Gradient 15 mmHg Estimated PAP/RSVP RA Pressure 5 mmHg <=5 PA Systolic Pressure 20 mmHg <36 RV Systolic Pressure 20 mmHg <36 TV Annular TDI TV Lateral Anne s' Velocity 10.4 cm/s >=9.5 Aorta Name Value Normal Ascending Aorta Ao Root Diameter (MM) 3.5 cm Ao Root Diam Index (MM) 1.5 cm/m2 Aortic Valve Name Value Normal AV Doppler AV Peak Velocity 155 cm/s AV Peak Gradient 10 mmHg AV Mean Gradient 5 mmHg AV VTI 29 cm AV Area (Cont Eq VTI) 1.9 cm2 >=3.0 AV Area (Cont Eq Lucio) 1.7 cm2 AV DI (Lucio) 0.53 AV Regurgitation 2D LVOT Area 3.1 cm2 Ventricles Name Value Normal LV Dimensions 2D/MM IVS Diastolic Thickness (2D) 1.3 cm 0.6-1.0 LVID Diastole (2D) 5.0 cm 3.8-5.2 LVIW Diastolic Thickness (2D) 1.3 cm 0.6-0.9 LVID Systole (2D) 3.7 cm 2.2-3.5 LVOT Diameter 2.0 cm LV Mass (2D Cubed) 255.60 g 67.00-162.00 LV Mass Index (2D Cubed) 112 g/m2 43-95 Relative Wall Thickness (2D) 0.52 <=0.42 LV Fractional Shortening/Ejection Fraction 2D/MM LV Fractional Shortening (2D) 26 % 27-45 LV EF (2D Teichholz) 51 % LV Diastolic Volume (4C MOD) 113 ml LV EF (4C MOD) 60 % LV Diastolic Volume (2C MOD) 117 ml LV EF (2C MOD) 51 % LV Diastolic Volume (BP MOD) 115 ml 46-106 LV Diastolic Volume Index (BP MOD) 50 ml/m2 29-61 LV Systolic Volume (BP MOD) 51 ml 14-42 LV Systolic Volume Index (BP MOD) 22 ml/m2 8-24 LV EF (BP MOD) 56 % 54-74 LV Diastolic Length (4C) 8.3 cm LV Systolic Length (4C) 7.1 cm LV Stroke Volume (4C MOD) 68 ml RV Dimensions 2D/MM RVID Diastole (2D) 4.1 cm 2.1-3.5 Atria Name Value Normal LA Dimensions LA Dimension (MM) 0.0 cm 2.7-3.8 LA Volume (4C A-L) 55 ml LA Volume (BP A-L) 72 ml RA Dimensions RA Systolic Major [place] Length (4C) 5.2 cm 2.2-2.8 RA Area (4C) 16.5 cm2 <=18.0 Report Signatures
--- NOTE | 2024-11-18 08:12 | EST_ITS ---
Patient Info Name: Kayleen Blair Age: 79 years : 1945 Gender: Female Ht: 67 in Wt: 235 lbs BSA: 2.29 m2 HR: 68 bpm BP: 190 / 91 mmHg Exam Date: 11/18/2024 8:12 AM Patient Status: O Admit Date: 11/18/2024 Exam Type: CA stress guillermo w NM A regadenoson stress test was performed. Staff Referring Physician: Kiel Dunne DO Attending Provider: Kiel Dunne DO Exercise Technologist: Fiorella Monet Exercise Physician: Kiel Dunne DO Summary 1. 1. Negative lexiscan stress test for ischemic ST changes by ECG criteria. 2. 2. Baseline hypertension. 3. 3. Nuclear scan to follow and will be reported separately. Please correlate with it. 4. 4. Patient informed of the above results. Protocol: Lexiscan Stress ECG Details Stage: REST Duration (min): 3 min : 30 sec HR (bpm): 70 SBP (mmHg): 196 DBP (mmHg): 91 Stage: REST Duration (min): 7 min : 19 sec HR (bpm): 65 SBP (mmHg): 190 DBP (mmHg): 91 Stage: STAGE 1 Duration (min): 0 min : 59 sec HR (bpm): 84 SBP (mmHg): 190 DBP (mmHg): 91 Stage: RECOVERY Duration (min): 1 min : 0 sec HR (bpm): 84 SBP (mmHg): 199 DBP (mmHg): 88 Stage: RECOVERY Duration (min): 2 min : 0 sec HR (bpm): 80 SBP (mmHg): 199 DBP (mmHg): 88 Stage: RECOVERY Duration (min): 3 min : 0 sec HR (bpm): 77 SBP (mmHg): 172 DBP (mmHg): 89 Stage: RECOVERY Duration (min): 3 min : 37 sec HR (bpm): 83 SBP (mmHg): 172 DBP (mmHg): 89 Rest HR: 65 bpm Peak HR: 86 bpm Rest Sys BP: 190 mmHg Peak Sys BP: 199 mmHg Max Pred HR: 140 bpm % Max Pred HR: 61 % Target HR: 119 bpm Max RPP: 17,114 bpm*mmHg Termination Reason: Completed protocol Cardiac Symptoms: Shortness of breath Total Time: 1 min : 0 sec Rest Durant BP: 91 mmHg Peak Durant BP: 88 mmHg Total Dose: 0.4 mg Resting ECG Sinus rhythm, RBBB, LAFB. Stress ECG No ST changes. Arrhythmias None. Report Signatures
== END 2024-11-18 08:04 | disposition home or self-care (01) ==
PROVIDERS: PCP Nurse Practitioner; Visit Provider Internal Medicine Cardiovascular Disease
DX: R07.9 Chest pain, unspecified (principal); I34.0 Nonrheumatic mitral (valve) insufficiency; I35.1 Nonrheumatic aortic (valve) insufficiency
CPT/HCPCS: 78452; 93017; 93306; A9502; J2785